=== PATIENT | male | born 1940 | race African-American/Black ===

== ENCOUNTER 2018-04-02 09:10 | Outpatient (CLI) | payer MEDICARE ==
[~2018-04-02] VITALS: Ht 185.4 cm; Wt 93.0 kg
[2018-04-02 10:52] VITALS: BP 127/83
[2018-04-02] MEDS ORDERED: cholesterol med (10:59)
[2018-04-02] MEDS ORDERED: BP med (10:59)
--- NOTE | 2018-04-02 15:20 | GI Initial Consult Note ---
History of Present Illness General Date patient seen: Apr 02, 2018 Time patient seen: 15:17 Referring physician: Armond Reason for Consultation: Colonoscopy Present Illness HPI 77 year old male patient whom presents today for repeat colonoscopy. The patient has history of colonoscopy performed in 2010 noted with 12 polyps. No GI complaints noted today; denies abdominal pain, N/V/D or diarrhea. Denies any unintentional weight loss or changes in dietary habits. No signs of abuse or neglect. Patient is not fall risk. Home Meds Reported Medications [cholesterol med ] No Conflict Check 04/02/18 [BP med ] No Conflict Check 04/02/18 Med list reviewed/reconciled: Yes Allergies: Coded Allergies: No Known Allergies (Unverified , 04/02/18) Patient History History Provided By: Patient, Medical Record PMH Narrative HTN Cholesterol BPH Past Surgical History: TUR-P Rt Knee Pertinent Family History: other - mother had CA Social History: Reports: smoking - 1 pack daily, other - caffeine Review of Systems All Other Systems: negative except mentioned in HPI Physical Exam Vital Signs Date Time Temp Pulse Resp B/P (MAP) Pulse Ox O2 Delivery O2 Flow Rate FiO2 04/02/18 10:52 98.1 81 18 127/83 97 98.1 Sp02 EP Interpretation: reviewed, normal General Appearance: well appearing, no apparent distress, alert Head: normocephalic EENT: PERRL/EOMI, normal ENT inspection Neck: supple Respiratory: normal breath sounds, no respiratory distress Cardiovascular: normal rate Gastrointestinal: normal inspection, non tender, soft, normal bowel sounds, non -distended Rectal: deferred Genitourinary: deferred Musculoskeletal: normal inspection, back normal Neurologic: normal inspection, alert, oriented x3, responsive Psychiatric: normal inspection, judgement/insight normal, memory normal Skin: normal inspection, normal color, no rash, warm/dry, palpation normal, well hydrated Lymphatic: normal inspection, no adenopathy GI: Plan Problems: (1) Colonic polyp (2) Colonoscopy planned Plan Colonoscopy to be scheduled 04/12/18. - CLD & (Nulytely/Suprep/Movi-Prep) prep instructions given and acknowledged by patient. - NPO @ [place] day prior procedure explained. Seen with Dr. Kraft. Thank you for this patient referral. The patient was seen and examined at bedside and all new and available data was reviewed in the patients chart. I agree with the above findings, impression and plan. (Patient seen earlier today. Signature stamp does not reflect patient encounter time.). - MD Nuria HammerB[facility] Center[facility] Apr 02, 2018 15:20
== END 2018-04-02 09:40 | disposition home or self-care (01) ==
LOC: PAN 09:10
DX: Z12.11 Encounter for screening for malignant neoplasm of colon (principal); K63.5 Polyp of colon; I10 Essential (primary) hypertension; E78.5 Hyperlipidemia, unspecified; N40.0 Benign prostatic hyperplasia without lower urinary tract symptoms
CPT/HCPCS: 99201

== ENCOUNTER 2018-04-12 08:32 | Day surgery (SDC) | payer MEDICARE ==
[~2018-04-12] VITALS: Ht 188 cm; Wt 97.5 kg
[2018-04-12] VITALS (8 sets, daily range): BP systolic 103–126; BP diastolic 64–78
--- NOTE | 2018-04-12 06:08 | Anethesia Preoperative Eval ---
Anesthesia Pre-op PMH/ROS General Date of Evaluation: Apr 12, 2018 Time of Evaluation: 06:05 Anesthesiologist: tracey ASA Score: ASA 4 Mallampati Score Class I : Soft palate, uvula, fauces, pillars visible Class II: Soft palate, uvula, fauces visible Class III: Soft palate, base of uvula visible Class IV: Only hard plate visible Mallampati Classification: Class II Surgeon: errol Diagnosis: colon screening Surgical Procedure: colonoscopy Anesthesia History: none Social History: current smoker Family History: no anesthesia problems Allergies: Coded Allergies: No Known Allergies (Unverified , 04/02/18) Medications: see eMAR Past Medical History Cardiovascular: Reports: HTN, other - hypercholesterolemia Gastrointestinal/Genitourinary: Reports: other - colon polyps Musculoskeletal/Integumentary: Reports: OA PSxH Narrative: tur-p, knee arthroscopy Anesthesia Pre-op Phys. Exam Physician Exam Last Vital Signs Date Time Temp Pulse Resp B/P (MAP) Pulse Ox O2 Delivery O2 Flow Rate FiO2 04/12/18 09:08 Room Air 04/12/18 08:57 98.0 78 18 120/72 (88) 96 98.0 Constitutional: NAD Neurologic: CN 2-12 intact Cardiovascular: RRR Respiratory: CTA Gastrointestinal: S/NT/ND Airway Exam Mallampati Score: Class II MO: limited Neck: flexible TMD: 2fb ROM: limited Teeth: intact Anesthesia Pre-op A/P Labs Labs Test 04/12/18 09:20 White Blood Count 9.2 K/UL (4.8-10.8) Red Blood Count 5.49 M/UL (4.70-6.10) Hemoglobin 16.3 G/DL (14.2-18.0) Hematocrit 50.3 % (42.0-52.0) Mean Corpuscular Volume 92 FL (80-99) Mean Corpuscular Hemoglobin 29.8 PG (27.0-31.0) Mean Corpuscular Hemoglobin Concent 32.5 G/DL (32.0-36.0) Red Cell Distribution Width 14.5 % (11.6-14.8) Platelet Count 400 K/UL (150-450) Mean Platelet Volume 5.7 FL (6.5-10.1) Neutrophils (%) (Auto) 61.9 % (45.0-75.0) Lymphocytes (%) (Auto) 24.1 % (20.0-45.0) Monocytes (%) (Auto) 9.2 % (1.0-10.0) Eosinophils (%) (Auto) 3.8 % (0.0-3.0) Basophils (%) (Auto) 1.0 % (0.0-2.0) Sodium Level 140 MMOL/L (136-145) Potassium Level 3.0 MMOL/L (3.5-5.1) Chloride Level 106 MMOL/L (98-107) Carbon Dioxide Level 23 MMOL/L (21-32) Anion Gap 11 mmol/L (5-15) Blood Urea Nitrogen 6 mg/dL (7-18) Creatinine 1.0 MG/DL (0.55-1.30) Estimat Glomerular Filtration Rate mL/min (>60) Glucose Level 115 MG/DL (74-106) Calcium Level 9.2 MG/DL (8.5-10.1) Total Bilirubin 0.4 MG/DL (0.2-1.0) Aspartate Amino Transf (AST/SGOT) 21 U/L (15-37) Alanine Aminotransferase (ALT/SGPT) 24 U/L (12-78) Alkaline Phosphatase 104 U/L (46-116) Total Protein 7.5 G/DL (6.4-8.2) Albumin 3.7 G/DL (3.4-5.0) Globulin 3.8 g/dL Albumin/Globulin Ratio 1.0 (1.0-2.7) Studies Pre-op Studies: EKG - nsr, lad Risk Assessment & Plan Assessment: asa4 Plan: mac Status Change Before Surgery: No Pre-Antibiotics Drug: Lisbet Kline MD Apr 12, 2018 06:08
[~2018-04-12 08:32] MED LIST: Atropine Inj 1mg/10ml Syr IV PRN; BP med; DiphenhydrAMINE 50mg/ml Inj IVP PRN; Midazolam 2mg/2ml Inj IVP PRN; cholesterol med; fentaNYL 100 mcg/2 mL IV PRN
[2018-04-12] MEDS ORDERED: CRESTOR10 M2 ORAL (09:06)
[2018-04-12] MEDS ORDERED: VITAMIN B COMP1 EAC2 ORAL (09:06)
[2018-04-12] MEDS ORDERED: AVAPRO75 MG ORAL (09:06)
[2018-04-12 09:39] LABS: EOSINOPHILS % (AUTO) 3.8 % (0.0-3.0); HEMATOCRIT 50.3 % (42.0-52.0); HEMOGLOBIN 16.3 G/DL (14.2-18.0); LYMPHOCYTES % (AUTO) 24.1 % (20.0-45.0); MEAN CORPUSCULAR VOLUME 92 FL (80-99); MONOCYTES % (AUTO) 9.2 % (1.0-10.0); NEUTROPHILS % (AUTO) 61.9 % (45.0-75.0); PLATELET COUNT 400 K/UL (150-450); RED BLOOD COUNT 5.49 M/UL (4.70-6.10); RED CELL DISTRIBUTION WIDTH 14.5 % (11.6-14.8); WHITE BLOOD COUNT 9.2 K/UL (4.8-10.8)
[2018-04-12 09:42] LABS: ANION GAP 11 mmol/L (5-15); BLOOD UREA NITROGEN 6 mg/dL (7-18); CALCIUM 9.2 MG/DL (8.5-10.1); CARBON DIOXIDE 23 MMOL/L (21-32); CHLORIDE 106 MMOL/L (98-107); SODIUM 140 MMOL/L (136-145)
[2018-04-12 09:46] LABS: ALANINE AMINOTRANSFERASE 24 U/L (12-78); ALBUMIN 3.7 G/DL (3.4-5.0); ALKALINE PHOSPHATASE 104 U/L (46-116); ASPARTATE AMINO TRANSFERASE 21 U/L (15-37); BILIRUBIN,TOTAL 0.4 MG/DL (0.2-1.0)
[2018-04-12] MEDS ORDERED: Propofol 200mg/20ml IV ONE (10:00)
[2018-04-12] MEDS ORDERED: Lidocaine 1% MPF 10mg/ml 5ml ONE (10:00)
[2018-04-12] MEDS ORDERED: Atropine Sulfate 0.4mg/ml inj ONE (10:00)
--- NOTE | 2018-04-12 10:20 | Pre-Procedure Note/Attestation ---
Pre-Procedure Note/Attestation Complete Prior to Procedure Planned Procedure: not applicable Procedure Narrative: esophagogastroduodenoscopy and colonoscopy Indications for Procedure Pre-Operative Diagnosis: screening colon, GERD Attestation I attest that I discussed the nature of the procedure; its benefits; risks and complications; and alternatives (and the risks and benefits of such alternatives ), prior to the procedure, with the patient (or the patient's legal sales account representative). I attest that, if there was a reasonable possibility of needing a blood transfusion, the patient (or the patient's legal sales account representative) was given the [facility] standardized written summary, pursuant to the [place] Blood Safety Act ([place] Health and Safety Code # 1645, as amended). I attest that I re-evaluated the patient just prior to the surgery and that there has been no change in the patient's H&P, except as documented below: Severiano Kraft MD Apr 12, 2018 10:20
--- NOTE | 2018-04-12 10:21 | Short Stay Surgery H&P ---
History of Present Illness History of Present Illness Chief Complaint see recent office notes HPI Jeremiah Raymundo Jr is a 77 year old male who was admitted on for Colon Screening Patient History Allergies: Coded Allergies: No Known Allergies (Unverified , 04/02/18) Medication History Scheduled Irbesartan* (Avapro*), Unknown Dose ORAL DAILY, (Reported) Rosuvastatin Calcium* (Crestor*), Unknown Dose ORAL DAILY, (Reported) Vitamin B Complex (Vitamin B Complex), 1 CAP ORAL DAILY, (Reported) Physical Exam Vital Signs Last Vital Signs Date Time Temp Pulse Resp B/P (MAP) Pulse Ox O2 Delivery O2 Flow Rate FiO2 04/12/18 09:08 Room Air 04/12/18 08:57 98.0 78 18 120/72 (88) 96 98.0 Labs Laboratory Tests Test 04/12/18 09:20 White Blood Count 9.2 K/UL (4.8-10.8) Red Blood Count 5.49 M/UL (4.70-6.10) Hemoglobin 16.3 G/DL (14.2-18.0) Hematocrit 50.3 % (42.0-52.0) Mean Corpuscular Volume 92 FL (80-99) Mean Corpuscular Hemoglobin 29.8 PG (27.0-31.0) Mean Corpuscular Hemoglobin Concent 32.5 G/DL (32.0-36.0) Red Cell Distribution Width 14.5 % (11.6-14.8) Platelet Count 400 K/UL (150-450) Mean Platelet Volume 5.7 FL (6.5-10.1) L Neutrophils (%) (Auto) 61.9 % (45.0-75.0) Lymphocytes (%) (Auto) 24.1 % (20.0-45.0) Monocytes (%) (Auto) 9.2 % (1.0-10.0) Eosinophils (%) (Auto) 3.8 % (0.0-3.0) H Basophils (%) (Auto) 1.0 % (0.0-2.0) Sodium Level 140 MMOL/L (136-145) Potassium Level 3.0 MMOL/L (3.5-5.1) L Chloride Level 106 MMOL/L (98-107) Carbon Dioxide Level 23 MMOL/L (21-32) Anion Gap 11 mmol/L (5-15) Blood Urea Nitrogen 6 mg/dL (7-18) L Creatinine 1.0 MG/DL (0.55-1.30) Estimat Glomerular Filtration Rate mL/min (>60) Glucose Level 115 MG/DL (74-106) H Calcium Level 9.2 MG/DL (8.5-10.1) Total Bilirubin 0.4 MG/DL (0.2-1.0) Aspartate Amino Transf (AST/SGOT) 21 U/L (15-37) Alanine Aminotransferase (ALT/SGPT) 24 U/L (12-78) Alkaline Phosphatase 104 U/L (46-116) Total Protein 7.5 G/DL (6.4-8.2) Albumin 3.7 G/DL (3.4-5.0) Globulin 3.8 g/dL Albumin/Globulin Ratio 1.0 (1.0-2.7) Carcinoembryonic Antigen Pending Plan Attestation Are the patient's medical conditions optimized for surgery? Severiano Kraft MD Apr 12, 2018 10:21
--- NOTE | 2018-04-12 11:24 | Endoscopy Procedure Note ---
Endoscopy Procedure Note General Indication for Procedure: colon polyps Procedures Performed: colonoscopy Operative Findings/Diagnosis: 9 polyps Specimen: yes Pt Tolerated Procedure Well: Yes Estimated Blood Loss: none Anesthesia Anesthesiologist: hallie Anesthesia: MAC Inserted Devices Implant(s) used?: No Quality Quality of Bowel Preparation: Good Did scope reach the cecum?: Yes Was there any complications?: No GI Core Measures 50 yrs or older w/o bx or poly: No 10yrs. F/U not recommended: Yes If not recommended, why?: Above average risk 10 yrs. F/U needed: Yes 18 years or older w/prev. colo: Yes <3yrs. since last colonoscopy: No Severiano Kraft MD Apr 12, 2018 11:24
--- NOTE | 2018-04-12 11:43 | Immediate Post-Op Evaluation ---
Immediate Post-Op Evalulation Immediate Post-Op Evalulation Procedure: colonoscopy w/bx Date of Evaluation: Apr 12, 2018 Time of Evaluation: 11:39 IV Fluids: 700ml 0.9ns Blood Products: none Estimated Blood Loss: negligible Blood Pressure Systolic: 118 Blood Pressure Diastolic: 69 Pulse Rate: 69 Respiratory Rate: 18 O2 Sat by Pulse Oximetry: 99 Temperature (Fahrenheit): 97.1 Pain Score (1-10): 0 Nausea: No Vomiting: No Complications none Patient Status: awake, reacts, patent Hydration Status: adequate Drug: Lisbet Kline MD Apr 12, 2018 11:43
--- NOTE | 2018-04-12 11:44 | 48 Hour Post Anesthesia Eval ---
Post Anesthesia Evaluation Procedure: colonoscopy w/bx Date of Evaluation: Apr 12, 2018 Time of Evaluation: 11:43 Blood Pressure Systolic: 110 0: 66 Pulse Rate: 69 Respiratory Rate: 18 Temperature (Fahrenheit): 97.1 O2 Sat by Pulse Oximetry: 99 Airway: patent Nausea: No Vomiting: No Pain Intensity: 0 Hydration Status: adequate Cardiopulmonary Status: stable Mental Status/LOC: patient returned to baseline Post-Anesthesia Complications: none Follow-up care needed: N/A Lisbet Roth MD Apr 12, 2018 11:44
--- NOTE | 2018-04-12 22:00 | Procedure Note ---
DATE OF PROCEDURE: 04/12/2018 SURGEON: Severiano Kraft M.D. ANESTHESIOLOGIST: Dr. Ruiz. PROCEDURE: Colonoscopy with biopsy and snare polypectomy. INSTRUMENT: Olympus adult flexible colonoscope. INDICATION: History of colonic polyps, 10 of them actually. The procedure, risks, benefits, and possible consequences, including hemorrhage, aspiration, perforation and infection, and alternative treatments, were explained to the patient/legal guardian by Dr. Severiano Kraft and the patient/legal guardian understood and accepted these risks. DESCRIPTION OF PROCEDURE: After informed consent was obtained and the patient was adequately sedated, first rectal exam was performed, which was positive for internal hemorrhoids. Then, the scope was advanced from the rectum into cecum documented by appendiceal orifice, ileocecal valve, and right upper quadrant palpation. Quality of prep was good. The patient has a very large sessile polyp right at the opening of ileocecal valve. This polyp was removed with a piecemeal fashion using a snare at least four times and then the rest of it was removed with the Vincent net. The patient has also other polyps. He had one in ascending colon, removed with the cold biopsy forceps technique. He had three in transverse colon, two of them were small and removed with cold biopsy and one of them was larger. He had three in the descending colon. One of them was removed with snare with the cold biopsy forceps technique. The patient also had evidence of diverticulosis scattered throughout the colon. Retroflexion of rectum showed evidence of internal hemorrhoids. SUMMARY OF FINDINGS: 1. Multiple colonic polyps. 2. Polyps and piecemeal fashion removal of the ileocecal valve polyp. I want to thank, Dr. Percy Leahy, for this kind referral. Severiano Kraft M.D. DR: STEVE JOB#: [id number] CC: Percy Leahy M.D.; Fax#: [phone]
== END 2018-04-12 13:05 | disposition home or self-care (01) ==
LOC: GAS 08:32
DX: Z12.11 Encounter for screening for malignant neoplasm of colon (principal); Z86.010 Personal history of colon polyps; D12.2 Benign neoplasm of ascending colon; D12.4 Benign neoplasm of descending colon; D12.0 Benign neoplasm of cecum; D12.3 Benign neoplasm of transverse colon; K63.5 Polyp of colon; I10 Essential (primary) hypertension; E78.00 Pure hypercholesterolemia, unspecified; N40.0 Benign prostatic hyperplasia without lower urinary tract symptoms; F17.200 Nicotine dependence, unspecified, uncomplicated; M19.90 Unspecified osteoarthritis, unspecified site
CPT/HCPCS: 36415; 45380; 45385; 80053; 82378; 85025; 93005; J0461; J2704; 94003; 94150

== ENCOUNTER 2018-04-14 15:01 | Inpatient (IN) | payer MEDICARE ==
[~2018-04-14] VITALS: Ht 188 cm; Wt 97.2 kg
[~2018-04-14 15:01] MED LIST changes: +AVAPRO75 MG ORAL; -Atropine Inj 1mg/10ml Syr IV PRN; +CRESTOR10 M2 ORAL; -DiphenhydrAMINE 50mg/ml Inj IVP PRN; -Midazolam 2mg/2ml Inj IVP PRN; +VITAMIN B COMP1 EAC2 ORAL; -fentaNYL 100 mcg/2 mL IV PRN
[2018-04-14 15:16] VITALS: BP 79/44
[2018-04-14] MEDS ORDERED: Pantoprazole Inj IV ONE (15:30)
[2018-04-14] MEDS ORDERED: Isovue-300 100ml vial INJ PRN (15:30)
--- NOTE | 2018-04-14 15:37 | Emergency Room Report ---
History of Present Illness General Chief Complaint: Gastrointestinal Bleed Source: Patient Present Illness HPI Patient presents with the passing blood clots in his as stool. This began at 1 AM. He had a colonoscopy 3 days ago. He was doing okay. He denies any abdominal pain. He feels extremely weak at this time. He's passed more than 2 cups in less than a gallon of blood. The blood seems to be slowing down with his last stool. There is no vomiting. Denies any chest pain or dyspnea. Dizziness with standing. No chest pain. Some DURON. No fevers or chills. Denies dysuria or joint pain. No cough or sore throat. The patient is a history of urinary retention. He's on medication. The patient is also smoker denies alcohol or drugs. Allergies: Coded Allergies: No Known Allergies (Unverified , 04/02/18) Patient History Past Medical History: see triage record Social History: Reports: smoking; Denies: alcohol use, drug use Social History Narrative runs [facility] Reviewed Nursing Documentation: PMH: Agreed; PSxH: Agreed Nursing Documentation-PMH Hx Cardiac Problems: Yes Hx Hypertension: Yes Hx Cancer: No Hx Gastrointestinal Problems: No Hx Neurological Problems: No Review of Systems All Other Systems: negative except mentioned in HPI Physical Exam Vital Signs Date Time Temp Pulse Resp B/P (MAP) Pulse Ox O2 Delivery O2 Flow Rate FiO2 04/14/18 15:16 97.5 99 20 79/44 98 Room Air 97.5 Sp02 EP Interpretation: reviewed, normal General Appearance: well appearing, no apparent distress, GCS 15 Head: normocephalic Eyes: bilateral eye normal inspection, bilateral eye PERRL ENT: moist mucus membranes Neck: supple Respiratory: lungs clear, normal breath sounds Cardiovascular #1: regular rate, rhythm Cardiovascular #2: 2+ radial (R) Gastrointestinal: normal inspection, normal bowel sounds, non tender, no mass, non-distended Rectal: heme positive stool Musculoskeletal: back normal, gait/station normal, normal range of motion Neurologic: alert, oriented x3, grossly normal Psychiatric: mood/affect normal Skin: normal inspection, warm/dry Procedures Critical Care Time Critical Care Time Total Critical Care Time: 60 min bedside evaluation and treatment excludes procedures (EKG). Reason for critical care: hemorrhagic shock, repeated evaluations, blood transfusions, consultations, K+ replacement Possible complications: hypotension, hypertension, AR, shock, arrhythmias, metabolic acidosis, end organ damage, respiratory failure. Interventions: Fluid resuscitation, blood transfusions, GI consultation, repeated evaluations Course: Patient with lower GI bleed and hypotension. Immediate fluid resuscitation and request for blood. Informed consent for transfusions. Discussion with blood bank. Improved with fluids and blood. Less bleeding. Tolerated blood. Discussion with surgical services asst who saw patient in ED. Discussed with GI market intelligence consultant. K+ critically low and replacement ordered. Tolerated infusions. Repeated assessments. Still with bleeding. VS improved. Consultations: nursing staff, EMS, family, blood bank, GI market intelligence consultant, surgical services asst Performed by: Dr. Jeronimo Tolerated well condition = serious Medical Decision Making Diagnostic Impression: Primary Impression: Hemorrhagic shock Additional Impressions: Lower GI bleed Hypokalemia ER Course Patient presents with passing blood clots per rectum and hypotension. Differential includes postprocedure bleed, diverticulosis and other possible lesions. The patient is in hemorrhagic shock at this time and needs to have fluid resuscitation as well as a blood. If the bleeding resumes we should consider TXA. Acid. Evaluation will also be with EKG, chest x-ray and CT of the abdomen with IV contrast. EKG with sinus rhythm rate of 97 no strain. H/H low, still felt to be higher due to hemoconcentration - blood still requested. CXR unremarkable. The blood bank has been notified that we will need blood as soon as possible for him. K+ low. K ordered IV. BP better and blood being transfused. Repeat H/H prior to transfusion. H/H dropped 2 points before transfusion. Improved. Seen by Dr. Burton. Discussed with Dr. Kraft. CT - see report. No free air. Still passing blood per rectum after transfusions. VS stable. Admit telemetry, Dr. Leahy. Laboratory Tests Test 04/14/18 15:25 04/14/18 17:18 White Blood Count 10.9 K/UL (4.8-10.8) H 11.7 K/UL (4.8-10.8) H Red Blood Count 3.44 M/UL (4.70-6.10) L 2.85 M/UL (4.70-6.10) L Hemoglobin 11.1 G/DL (14.2-18.0) L 9.3 G/DL (14.2-18.0) L Hematocrit 32.8 % (42.0-52.0) L 27.6 % (42.0-52.0) L Mean Corpuscular Volume 95 FL (80-99) 97 FL (80-99) Mean Corpuscular Hemoglobin 32.3 PG (27.0-31.0) H 32.5 PG (27.0-31.0) H Mean Corpuscular Hemoglobin Concent 33.9 G/DL (32.0-36.0) 33.7 G/DL (32.0-36.0) Red Cell Distribution Width 14.6 % (11.6-14.8) 14.8 % (11.6-14.8) Platelet Count 315 K/UL (150-450) 250 K/UL (150-450) Mean Platelet Volume 5.9 FL (6.5-10.1) L 5.7 FL (6.5-10.1) L Neutrophils (%) (Auto) 59.8 % (45.0-75.0) 70.9 % (45.0-75.0) Lymphocytes (%) (Auto) 31.8 % (20.0-45.0) 20.2 % (20.0-45.0) Monocytes (%) (Auto) 6.2 % (1.0-10.0) 7.2 % (1.0-10.0) Eosinophils (%) (Auto) 1.5 % (0.0-3.0) 1.0 % (0.0-3.0) Basophils (%) (Auto) 0.7 % (0.0-2.0) 0.7 % (0.0-2.0) Prothrombin Time 10.9 SEC (9.30-11.50) Prothrombin Time INR 1.0 (0.9-1.1) PTT 28 SEC (23-33) Sodium Level 142 MMOL/L (136-145) Potassium Level 2.9 MMOL/L (3.5-5.1) L Chloride Level 107 MMOL/L (98-107) Carbon Dioxide Level 26 MMOL/L (21-32) Anion Gap 9 mmol/L (5-15) Blood Urea Nitrogen 15 mg/dL (7-18) Creatinine 1.2 MG/DL (0.55-1.30) Estimate Glomerular Filtration Rate mL/min (>60) Glucose Level 179 MG/DL (74-106) H Calcium Level 8.3 MG/DL (8.5-10.1) L Total Bilirubin 0.6 MG/DL (0.2-1.0) Aspartate Amino Transferase (AST) 11 U/L (15-37) L Alanine Aminotransferase (ALT) 17 U/L (12-78) Alkaline Phosphatase 75 U/L (46-116) Total Creatine Kinase 64 U/L (26-308) Troponin I 0.000 ng/mL (0.000-0.056) Total Protein 5.9 G/DL (6.4-8.2) L Albumin 2.9 G/DL (3.4-5.0) L Globulin 3.0 g/dL Albumin/Globulin Ratio 1.0 (1.0-2.7) Lipase 218 U/L (73-393) EKG Diagnostic Results Rate: normal Rhythm: NSR ST Segments: no acute changes Rhythm Strip Diag. Results EP Interpretation: yes Rhythm: NSR, no PVC's, no ectopy Chest X-Ray Diagnostic Results Chest X-Ray Diagnostic Results : Chest X-Ray Ordered: Yes # of Views/Limited/Complete: 1 View Indication: Other EP Interpretation: Yes Interpretation: no consolidation, no effusion, no pneumothorax Impression: No acute disease Electronically Signed by: Electronically signed by Nawaf Jeronimo MD CT/MRI/US Diagnostic Results CT/MRI/US Diagnostic Results : Imaging Test Ordered: abd pelvis Impression clips, cysts, no free air Last Vital Signs Date Time Temp Pulse Resp B/P (MAP) Pulse Ox O2 Delivery O2 Flow Rate FiO2 04/15/18 00:00 99.9 88 20 109/71 (84) 100 99.9 04/14/18 22:16 Room Air Status: improved Disposition: ADMITTED INPATIENT Condition: Serious Nawaf Jeronimo M.D. Apr 14, 2018 15:37
[2018-04-14 15:44] LABS: BASOPHILS % (AUTO) 0.7 % (0.0-2.0); EOSINOPHILS % (AUTO) 1.5 % (0.0-3.0); HEMATOCRIT 32.8 % (42.0-52.0); HEMOGLOBIN 11.1 G/DL (14.2-18.0); LYMPHOCYTES % (AUTO) 31.8 % (20.0-45.0); MEAN CORPUSCULAR VOLUME 95 FL (80-99); MONOCYTES % (AUTO) 6.2 % (1.0-10.0); NEUTROPHILS % (AUTO) 59.8 % (45.0-75.0); PLATELET COUNT 315 K/UL (150-450); RED BLOOD COUNT 3.44 M/UL (4.70-6.10); RED CELL DISTRIBUTION WIDTH 14.6 % (11.6-14.8); WHITE BLOOD COUNT 10.9 K/UL (4.8-10.8)
[2018-04-14 15:57] LABS: ANION GAP 9 mmol/L (5-15); BLOOD UREA NITROGEN 15 mg/dL (7-18); CALCIUM 8.3 MG/DL (8.5-10.1); CARBON DIOXIDE 26 MMOL/L (21-32); CHLORIDE 107 MMOL/L (98-107); CREATININE 1.2 MG/DL (0.55-1.30); POTASSIUM 2.9 MMOL/L (3.5-5.1); SODIUM 142 MMOL/L (136-145)
[2018-04-14 16:02] LABS: ALANINE AMINOTRANSFERASE 17 U/L (12-78); ALBUMIN 2.9 G/DL (3.4-5.0); ALKALINE PHOSPHATASE 75 U/L (46-116); ASPARTATE AMINO TRANSFERASE 11 U/L (15-37); BILIRUBIN,TOTAL 0.6 MG/DL (0.2-1.0); CREATINE KINASE 64 U/L (26-308)
[2018-04-14 17:40] VITALS: BP 97/47
[2018-04-14 17:46] LABS: BASOPHILS % (AUTO) 0.7 % (0.0-2.0); HEMATOCRIT 27.6 % (42.0-52.0); HEMOGLOBIN 9.3 G/DL (14.2-18.0); LYMPHOCYTES % (AUTO) 20.2 % (20.0-45.0); MEAN CORPUSCULAR VOLUME 97 FL (80-99); MONOCYTES % (AUTO) 7.2 % (1.0-10.0); NEUTROPHILS % (AUTO) 70.9 % (45.0-75.0); PLATELET COUNT 250 K/UL (150-450); RED BLOOD COUNT 2.85 M/UL (4.70-6.10); RED CELL DISTRIBUTION WIDTH 14.8 % (11.6-14.8); WHITE BLOOD COUNT 11.7 K/UL (4.8-10.8)
[2018-04-14 17:55] VITALS: BP 109/58
[2018-04-14 19:15] VITALS: BP 100/59
--- NOTE | 2018-04-14 19:25 | Consultation ---
History of Present Illness General Date patient seen: Apr 14, 2018 Chief Complaint: Gastrointestinal Bleed Reason for Consultation: GI Bleed Present Illness HPI 77 year old pleasant male presented to ED with complaints of GI bleed. States he had a colonoscopy this past Sunday where polyps were biopsied. Did well after procedure and went home. Was well at home without complaints. Had one or two watery non bloody BM's on Sunday. Woke up at 1AM Sunday morning with urge to use the bathroom and noted large bloody BM with multiple large blood clots. Came to ED for evaluation. Denies n/v/f/c. States he was tolerating diet well. [place] weak and fatigued after bloody BM. In ED noted to be anemic and transfused PRBC. surgery called to evaluate. patient seen in ED, chart reviewed, patient examined. Allergies: Coded Allergies: No Known Allergies (Unverified , 04/02/18) Medication History Scheduled Irbesartan* (Avapro*), Unknown Dose ORAL DAILY, (Reported) Rosuvastatin Calcium* (Crestor*), Unknown Dose ORAL DAILY, (Reported) Vitamin B Complex (Vitamin B Complex), 1 CAP ORAL DAILY, (Reported) Patient History History Provided By: Patient, Medical Record, PMD Healthcare decision maker Resuscitation status Advanced Directive on File Past Medical/Surgical History Past Medical/Surgical History: (1) Colonic polyp (2) Colonoscopy planned (3) Hemorrhagic shock (4) Hypokalemia (5) Lower GI bleed Review of Systems All Other Systems: negative except mentioned in HPI Physical Exam General Appearance: WD/WN, no apparent distress, alert Lines, tubes and drains: peripheral HEENT: normocephalic, mucous membranes moist Neck: normal inspection Respiratory/Chest: lungs clear, normal breath sounds, no respiratory distress, no accessory muscle use Cardiovascular/Chest: normal peripheral pulses, regular rhythm Abdomen: normal bowel sounds, non tender, soft, no organomegaly, no mass Genitourinary/Rectal: heme positive stool Extremities: normal range of motion, non-tender, normal inspection Skin Exam: warm/dry Neurologic: alert, oriented x 3 Last 24 Hour Vital Signs Date Time Temp Pulse Resp B/P (MAP) Pulse Ox O2 Delivery O2 Flow Rate FiO2 04/14/18 17:55 97.0 77 21 109/58 100 Room Air 97.0 04/14/18 17:40 97.1 78 18 97/47 100 Room Air 97.1 04/14/18 15:16 97.5 99 20 79/44 98 Room Air 97.5 04/14/18 15:16 97.5 99 20 79/44 98 Room Air 97.5 Laboratory Tests Test 04/14/18 15:25 04/14/18 17:18 White Blood Count 10.9 K/UL (4.8-10.8) H 11.7 K/UL (4.8-10.8) H Red Blood Count 3.44 M/UL (4.70-6.10) L 2.85 M/UL (4.70-6.10) L Hemoglobin 11.1 G/DL (14.2-18.0) L 9.3 G/DL (14.2-18.0) L Hematocrit 32.8 % (42.0-52.0) L 27.6 % (42.0-52.0) L Mean Corpuscular Volume 95 FL (80-99) 97 FL (80-99) Mean Corpuscular Hemoglobin 32.3 PG (27.0-31.0) H 32.5 PG (27.0-31.0) H Mean Corpuscular Hemoglobin Concent 33.9 G/DL (32.0-36.0) 33.7 G/DL (32.0-36.0) Red Cell Distribution Width 14.6 % (11.6-14.8) 14.8 % (11.6-14.8) Platelet Count 315 K/UL (150-450) 250 K/UL (150-450) Mean Platelet Volume 5.9 FL (6.5-10.1) L 5.7 FL (6.5-10.1) L Neutrophils (%) (Auto) 59.8 % (45.0-75.0) 70.9 % (45.0-75.0) Lymphocytes (%) (Auto) 31.8 % (20.0-45.0) 20.2 % (20.0-45.0) Monocytes (%) (Auto) 6.2 % (1.0-10.0) 7.2 % (1.0-10.0) Eosinophils (%) (Auto) 1.5 % (0.0-3.0) 1.0 % (0.0-3.0) Basophils (%) (Auto) 0.7 % (0.0-2.0) 0.7 % (0.0-2.0) Prothrombin Time 10.9 SEC (9.30-11.50) Prothromb Time International Ratio 1.0 (0.9-1.1) Activated Partial Thromboplast Time 28 SEC (23-33) Sodium Level 142 MMOL/L (136-145) Potassium Level 2.9 MMOL/L (3.5-5.1) L Chloride Level 107 MMOL/L (98-107) Carbon Dioxide Level 26 MMOL/L (21-32) Anion Gap 9 mmol/L (5-15) Blood Urea Nitrogen 15 mg/dL (7-18) Creatinine 1.2 MG/DL (0.55-1.30) Estimat Glomerular Filtration Rate mL/min (>60) Glucose Level 179 MG/DL (74-106) H Calcium Level 8.3 MG/DL (8.5-10.1) L Total Bilirubin 0.6 MG/DL (0.2-1.0) Aspartate Amino Transf (AST/SGOT) 11 U/L (15-37) L Alanine Aminotransferase (ALT/SGPT) 17 U/L (12-78) Alkaline Phosphatase 75 U/L (46-116) Total Creatine Kinase 64 U/L (26-308) Troponin I 0.000 ng/mL (0.000-0.056) Total Protein 5.9 G/DL (6.4-8.2) L Albumin 2.9 G/DL (3.4-5.0) L Globulin 3.0 g/dL Albumin/Globulin Ratio 1.0 (1.0-2.7) Lipase 218 U/L (73-393) Height (Feet): 6 Height (Inches): 2.00 Weight (Pounds): 210 Medications Current Medications Medications (Trade) Dose Ordered Sig/Kendal Route PRN Reason Start Time Stop Time Status Last Admin Dose Admin Iopamidol (Isovue-300 100ml) 100 ml NOW PRN INJ Radiology Procedure 04/14/18 15:30 Potassium Chloride 100 ml @ 100 mls/hr Q1HR IVPB 04/14/18 17:00 04/14/18 19:59 04/14/18 19:11 Sodium Chloride 1,000 ml @ 300 mls/hr Q3H20M IV 04/14/18 15:30 05/14/18 15:29 04/14/18 19:15 Assessment/Plan Problem List: (1) Lower GI bleed Assessment & Plan: Acute lower GI bleed 1-2 days after colonoscopy with polypectomy. Anemia s/p PRBC transfusion. Likely bleeding from polypectomy site which is common and has hopefully stopped by now. Likely just oozing and not active arterial bleeding. Discussed with PCP and GI -Admit -Trend H/H -Transfuse PRN -NPO p MN for possible repeat colonoscopy tomorrow -no acute surgical intervention necessary at this time. will be available in case ongoing hemorrhage thank you for allowing me to participate in Mr. Raymundo's care. will follow with recs ICD Codes: K92.2 - Gastrointestinal hemorrhage, unspecified SNOMED: [id number] Status: stable David Burton Apr 14, 2018 19:25
[2018-04-14] MEDS ORDERED: Mylanta II UD 30ml ORAL PRN (19:30)
[2018-04-14] MEDS ORDERED: Morphine Sulfate 2mg/ml Inj IVP PRN (19:30)
[2018-04-14] MEDS ORDERED: Nulytely 4L ORAL SCH (20:00)
[2018-04-14 20:45] VITALS: BP 101/62
[2018-04-14 21:20] VITALS: BP 119/74
[2018-04-14] MEDS ORDERED: Polyethylene Glycol 238gm bottle ORAL SCH (21:45)
[2018-04-15] VITALS (11 sets, daily range): BP systolic 94–135; BP diastolic 49–84
--- NOTE | 2018-04-15 00:15 | History and Physical Report ---
DATE OF ADMISSION: 04/14/2018 HISTORY OF PRESENT ILLNESS: The patient is a very pleasant 77-year-old male with history of hypertension, hyperlipidemia, and history of colon polyps, who had a colonoscopy done by Dr. Kraft on Sunday. After procedure, he went home and started having watery, nonbloody bowel movements on Sunday. He woke up Sunday morning at about 1 a.m., and noted to have a large bloody bowel movement with multiple blood clots. It continued and that is why he presented to the emergency room. He admitted to feeling some weakness in the ER and was noted to be hypotensive, tachycardic, and dizzy. The patient was fatigued. Denies any chest pain. No shortness of breath and he was transfused in the emergency room. PAST MEDICAL HISTORY: Includes history of hypertension, history of hyperlipidemia, and history of colonic polyps. MEDICATIONS: Please see his reconciled medication list. ALLERGIES: None known. SOCIAL HISTORY: He does not drink any alcohol. He does smoke. He does not use any drugs. FAMILY HISTORY: Noncontributory. REVIEW OF SYSTEMS: No headaches. No sore throat. No chest pain. No shortness of breath. He denies any abdominal pain. No urinary symptoms. Appetite is good in general. PHYSICAL EXAMINATION: GENERAL: He is well developed and well nourished, currently in no apparent distress, seen in the ER. VITAL SIGNS: His blood pressure initially was 79/44, pulse 99, temperature 97.5, and pulse oximetry 98%. He was given IV fluids and started on transfusion. His blood pressure increased to 109/58, pulse 77, and respirations 21. HEENT: Head is normocephalic and atraumatic. Pupils are equally reactive to light. Extraocular muscles intact. Eyes are anicteric. NECK: Supple. No JVP. No bruits. LUNGS: Clear. HEART: Regular rate and rhythm. ABDOMEN: Soft. Positive bowel sounds. Nondistended. Nontender. EXTREMITIES: No clubbing, cyanosis, or edema. positive. NEUROLOGIC: Nonfocal. PSYCHIATRY: Normal mood and affect. LABORATORY AND DIAGNOSTIC DATA: White count 10.9, initial hemoglobin was 11.1, hematocrit 32.8, and platelet count 315,000. Followup hemoglobin during transfusion was 9.3 and hematocrit 27.6. The patient had been given IV fluids too. His sodium is 142, potassium is 3.9, BUN of 15, creatinine 1.3, glucose 179, calcium 8.3. Troponin 0.00. EKG noted. ASSESSMENT AND PLAN: The patient is a 77-year-old male with history of hypertension, hyperlipidemia, and history of colonic polyps, who underwent colonoscopy on Sunday and presented to the emergency room with bright red blood per rectum with blood clots. He was initially hypotensive and somewhat tachycardic, feeling weak and dizzy. The patient was given IV fluids. He was also getting a transfusion of 2 units. GI consultation was requested with Dr. Kraft. The patient likely will need to have followup colonoscopy. I have also consulted Surgery in case he continues to bleed. His potassium will resolve with supplements and check a magnesium level. The sugar was also high. We will monitor Accu-Cheks and check a glycohemoglobin in the morning. Also, check his , lipid panel, and follow up CBC. The patient should be on DVT and ulcer prophylaxis. Percy Leahy M.D. : AJIT JOB#: [id number] CC: MAC
[2018-04-15] MEDS ORDERED: UNOBMED (06:18)
[2018-04-15 06:44] LABS: BASOPHILS % (AUTO) 1.1 % (0.0-2.0); EOSINOPHILS % (AUTO) 2.9 % (0.0-3.0); HEMATOCRIT 26.7 % (42.0-52.0); HEMOGLOBIN 9.2 G/DL (14.2-18.0); LYMPHOCYTES % (AUTO) 22.7 % (20.0-45.0); MEAN CORPUSCULAR VOLUME 92 FL (80-99); MONOCYTES % (AUTO) 7.4 % (1.0-10.0); NEUTROPHILS % (AUTO) 66.1 % (45.0-75.0); PLATELET COUNT 240 K/UL (150-450); RED BLOOD COUNT 2.91 M/UL (4.70-6.10); RED CELL DISTRIBUTION WIDTH 14.3 % (11.6-14.8); WHITE BLOOD COUNT 9.5 K/UL (4.8-10.8)
[2018-04-15 06:48] LABS: INR 1.1 (0.9-1.1)
[2018-04-15 07:05] LABS: ANION GAP 9 mmol/L (5-15); BLOOD UREA NITROGEN 12 mg/dL (7-18); CALCIUM 7.4 MG/DL (8.5-10.1); CARBON DIOXIDE 24 MMOL/L (21-32); CHLORIDE 113 MMOL/L (98-107); CREATININE 0.8 MG/DL (0.55-1.30); POTASSIUM 3.4 MMOL/L (3.5-5.1); SODIUM 146 MMOL/L (136-145)
--- NOTE | 2018-04-15 09:00 | Diagnostic Imaging Report ---
Indication: Chest pain Technique: One view of the chest Comparison: 03/27/2011 Findings: Lungs and pleural spaces are clear. The heart is enlarged. The aorta is tortuous and ectatic. Upper mediastinum is unremarkable. Findings are unchanged Impression: Cardiomegaly. No acute process
[2018-04-15] MEDS ORDERED: Propofol 200mg/20ml IV ONE (12:00)
[2018-04-15] MEDS ORDERED: ePHEDrine 50mg/ml Inj ONE (12:00)
--- NOTE | 2018-04-15 12:01 | General Surgery Progress Note ---
General Surgery-Progress Note Subjective Symptoms: improved, pain absent, passing flatus, BM Additional Comments feels better. labs okay. no significant bloody bms now Objective Last 24 Hour Vital Signs Date Time Temp Pulse Resp B/P (MAP) Pulse Ox O2 Delivery O2 Flow Rate FiO2 04/15/18 08:00 82 04/15/18 08:00 99.7 76 18 135/74 (94) 100 99.7 04/15/18 04:00 78 04/15/18 04:00 99.7 83 20 116/71 (86) 99 99.7 04/15/18 00:00 99.9 88 20 109/71 (84) 100 99.9 04/15/18 00:00 91 04/14/18 22:16 Room Air 04/14/18 21:20 97.9 82 18 119/74 (89) 100 97.9 04/14/18 21:11 77 04/14/18 20:50 98.0 78 18 101/62 100 Room Air 98.0 04/14/18 20:45 78 18 101/62 100 Room Air 04/14/18 19:15 98.0 76 21 100/59 100 Room Air 98.0 04/14/18 17:55 97.0 77 21 109/58 100 Room Air 97.0 04/14/18 17:40 97.1 78 18 97/47 100 Room Air 97.1 04/14/18 15:16 97.5 99 20 79/44 98 Room Air 97.5 04/14/18 15:16 97.5 99 20 79/44 98 Room Air 97.5 I&O Intake and Output 04/14/18 04/15/18 19:00 07:00 Intake Total 1386 ml Output Total 0 ml 100 ml Balance 0 ml 1286 ml Intake Oral 480 ml IV Total 906 ml Output Urine Total 0 ml Stool Total 100 ml # Voids 2 # Bowel Movements 1 Drains: none Cardiovascular: RSR Respiratory: clear Abdomen: soft, flat, non-tender, present bowel sounds Extremities: no edema, no tenderness, no cyanosis, other Laboratory Tests Test 04/14/18 15:25 04/14/18 17:18 04/15/18 05:50 White Blood Count 10.9 K/UL (4.8-10.8) H 11.7 K/UL (4.8-10.8) H 9.5 K/UL (4.8-10.8) Red Blood Count 3.44 M/UL (4.70-6.10) L 2.85 M/UL (4.70-6.10) L 2.91 M/UL (4.70-6.10) L Hemoglobin 11.1 G/DL (14.2-18.0) L 9.3 G/DL (14.2-18.0) L 9.2 G/DL (14.2-18.0) L Hematocrit 32.8 % (42.0-52.0) L 27.6 % (42.0-52.0) L 26.7 % (42.0-52.0) L Mean Corpuscular Volume 95 FL (80-99) 97 FL (80-99) 92 FL (80-99) Mean Corpuscular Hemoglobin 32.3 PG (27.0-31.0) H 32.5 PG (27.0-31.0) H 31.6 PG (27.0-31.0) H Mean Corpuscular Hemoglobin Concent 33.9 G/DL (32.0-36.0) 33.7 G/DL (32.0-36.0) 34.5 G/DL (32.0-36.0) Red Cell Distribution Width 14.6 % (11.6-14.8) 14.8 % (11.6-14.8) 14.3 % (11.6-14.8) Platelet Count 315 K/UL (150-450) 250 K/UL (150-450) 240 K/UL (150-450) Mean Platelet Volume 5.9 FL (6.5-10.1) L 5.7 FL (6.5-10.1) L 6.2 FL (6.5-10.1) L Neutrophils (%) (Auto) 59.8 % (45.0-75.0) 70.9 % (45.0-75.0) 66.1 % (45.0-75.0) Lymphocytes (%) (Auto) 31.8 % (20.0-45.0) 20.2 % (20.0-45.0) 22.7 % (20.0-45.0) Monocytes (%) (Auto) 6.2 % (1.0-10.0) 7.2 % (1.0-10.0) 7.4 % (1.0-10.0) Eosinophils (%) (Auto) 1.5 % (0.0-3.0) 1.0 % (0.0-3.0) 2.9 % (0.0-3.0) Basophils (%) (Auto) 0.7 % (0.0-2.0) 0.7 % (0.0-2.0) 1.1 % (0.0-2.0) Prothrombin Time 10.9 SEC (9.30-11.50) 11.1 SEC (9.30-11.50) Prothromb Time International Ratio 1.0 (0.9-1.1) 1.1 (0.9-1.1) Activated Partial Thromboplast Time 28 SEC (23-33) 29 SEC (23-33) Sodium Level 142 MMOL/L (136-145) 146 MMOL/L (136-145) H Potassium Level 2.9 MMOL/L (3.5-5.1) L 3.4 MMOL/L (3.5-5.1) L Chloride Level 107 MMOL/L (98-107) 113 MMOL/L (98-107) H Carbon Dioxide Level 26 MMOL/L (21-32) 24 MMOL/L (21-32) Anion Gap 9 mmol/L (5-15) 9 mmol/L (5-15) Blood Urea Nitrogen 15 mg/dL (7-18) 12 mg/dL (7-18) Creatinine 1.2 MG/DL (0.55-1.30) 0.8 MG/DL (0.55-1.30) Estimat Glomerular Filtration Rate mL/min (>60) mL/min (>60) Glucose Level 179 MG/DL (74-106) H 111 MG/DL (74-106) H Calcium Level 8.3 MG/DL (8.5-10.1) L 7.4 MG/DL (8.5-10.1) L Total Bilirubin 0.6 MG/DL (0.2-1.0) Aspartate Amino Transf (AST/SGOT) 11 U/L (15-37) L Alanine Aminotransferase (ALT/SGPT) 17 U/L (12-78) Alkaline Phosphatase 75 U/L (46-116) Total Creatine Kinase 64 U/L (26-308) Troponin I 0.000 ng/mL (0.000-0.056) Total Protein 5.9 G/DL (6.4-8.2) L Albumin 2.9 G/DL (3.4-5.0) L Globulin 3.0 g/dL Albumin/Globulin Ratio 1.0 (1.0-2.7) Lipase 218 U/L (73-393) Plan Problems: (1) Lower GI bleed Assessment & Plan: Acute lower GI bleed 1-2 days after colonoscopy with polypectomy. Anemia s/p PRBC transfusion. Likely bleeding from polypectomy site which is common and has hopefully stopped by now. Likely just oozing and not active arterial bleeding. Discussed with PCP and GI -Trend H/H -Transfuse PRN -prep for colonoscopy currently -no acute surgical intervention necessary at this time. will be available in case ongoing hemorrhage thank you for allowing me to participate in Mr. Raymundo's care. will follow with David Negron Apr 15, 2018 12:01
[2018-04-15] MEDS ORDERED: LR 1000ml 1,000 ML IVLG SCH (12:10)
--- NOTE | 2018-04-15 12:14 | Anethesia Preoperative Eval ---
Anesthesia Pre-op PMH/ROS General Date of Evaluation: Apr 15, 2018 Anesthesiologist: Rosey ASA Score: ASA 3 Mallampati Score Class I : Soft palate, uvula, fauces, pillars visible Class II: Soft palate, uvula, fauces visible Class III: Soft palate, base of uvula visible Class IV: Only hard plate visible Mallampati Classification: Class II Surgeon: Swapnil Diagnosis: Rectal bleeding Surgical Procedure: Colonoscopy Family History: no anesthesia problems Allergies: Coded Allergies: No Known Allergies (Unverified , 04/02/18) Medications: see eMAR Past Medical History Cardiovascular: Reports: HTN; Denies: CAD, MT, valve dz, arrhythmia, other Pulmonary: Denies: asthma, COPD, TERRY, other Gastrointestinal/Genitourinary: Denies: GERD, CRI, ESRD, other Neurologic/Psychiatric: Denies: dementia, CVA, depression/anxiety, TIA, other Endocrine: Denies: DM, hypothyroidism, steroids, other HEENT: Denies: cataract (L), cataract (R), glaucoma, [place] (L), [place] (R), other Hematology/Immune: Reports: anemia - Rectal bleeding; Denies: DVT, bleeding disorder, other Musculoskeletal/Integumentary: Denies: OA, RA, DJD, DDD, edema, other PMH Narrative: HTN, hyperlipemia, colon polyps, rectal bleeding PSxH Narrative: Colonoscopy (removal of polyps) Anesthesia Pre-op Phys. Exam Physician Exam Last Vital Signs Date Time Temp Pulse Resp B/P (MAP) Pulse Ox O2 Delivery O2 Flow Rate FiO2 04/15/18 08:00 82 04/15/18 08:00 99.7 18 135/74 (94) 100 99.7 04/14/18 22:16 Room Air Constitutional: NAD Neurologic: CN 2-12 intact Cardiovascular: RRR, no M/R/G Respiratory: CTA Gastrointestinal: S/NT/ND Airway Exam Mallampati Score: Class II MO: full ROM: full Anesthesia Pre-op A/P Labs Hematology Test 04/14/18 15:25 04/14/18 17:18 04/15/18 05:50 White Blood Count 10.9 K/UL (4.8-10.8) H 11.7 K/UL (4.8-10.8) H 9.5 K/UL (4.8-10.8) Red Blood Count 3.44 M/UL (4.70-6.10) L 2.85 M/UL (4.70-6.10) L 2.91 M/UL (4.70-6.10) L Hemoglobin 11.1 G/DL (14.2-18.0) L 9.3 G/DL (14.2-18.0) L 9.2 G/DL (14.2-18.0) L Hematocrit 32.8 % (42.0-52.0) L 27.6 % (42.0-52.0) L 26.7 % (42.0-52.0) L Mean Corpuscular Volume 95 FL (80-99) 97 FL (80-99) 92 FL (80-99) Mean Corpuscular Hemoglobin 32.3 PG (27.0-31.0) H 32.5 PG (27.0-31.0) H 31.6 PG (27.0-31.0) H Mean Corpuscular Hemoglobin Concent 33.9 G/DL (32.0-36.0) 33.7 G/DL (32.0-36.0) 34.5 G/DL (32.0-36.0) Red Cell Distribution Width 14.6 % (11.6-14.8) 14.8 % (11.6-14.8) 14.3 % (11.6-14.8) Platelet Count 315 K/UL (150-450) 250 K/UL (150-450) 240 K/UL (150-450) Mean Platelet Volume 5.9 FL (6.5-10.1) L 5.7 FL (6.5-10.1) L 6.2 FL (6.5-10.1) L Neutrophils (%) (Auto) 59.8 % (45.0-75.0) 70.9 % (45.0-75.0) 66.1 % (45.0-75.0) Lymphocytes (%) (Auto) 31.8 % (20.0-45.0) 20.2 % (20.0-45.0) 22.7 % (20.0-45.0) Monocytes (%) (Auto) 6.2 % (1.0-10.0) 7.2 % (1.0-10.0) 7.4 % (1.0-10.0) Eosinophils (%) (Auto) 1.5 % (0.0-3.0) 1.0 % (0.0-3.0) 2.9 % (0.0-3.0) Basophils (%) (Auto) 0.7 % (0.0-2.0) 0.7 % (0.0-2.0) 1.1 % (0.0-2.0) Coagulation Test 04/14/18 15:25 04/15/18 05:50 Prothrombin Time 10.9 SEC (9.30-11.50) 11.1 SEC (9.30-11.50) Prothromb Time International Ratio 1.0 (0.9-1.1) 1.1 (0.9-1.1) Activated Partial Thromboplast Time 28 SEC (23-33) 29 SEC (23-33) Chemistry Test 04/14/18 15:25 04/15/18 05:50 Sodium Level 142 MMOL/L (136-145) 146 MMOL/L (136-145) H Potassium Level 2.9 MMOL/L (3.5-5.1) L 3.4 MMOL/L (3.5-5.1) L Chloride Level 107 MMOL/L (98-107) 113 MMOL/L (98-107) H Carbon Dioxide Level 26 MMOL/L (21-32) 24 MMOL/L (21-32) Anion Gap 9 mmol/L (5-15) 9 mmol/L (5-15) Blood Urea Nitrogen 15 mg/dL (7-18) 12 mg/dL (7-18) Creatinine 1.2 MG/DL (0.55-1.30) 0.8 MG/DL (0.55-1.30) Estimat Glomerular Filtration Rate mL/min (>60) mL/min (>60) Glucose Level 179 MG/DL (74-106) H 111 MG/DL (74-106) H Calcium Level 8.3 MG/DL (8.5-10.1) L 7.4 MG/DL (8.5-10.1) L Total Bilirubin 0.6 MG/DL (0.2-1.0) Aspartate Amino Transf (AST/SGOT) 11 U/L (15-37) L Alanine Aminotransferase (ALT/SGPT) 17 U/L (12-78) Alkaline Phosphatase 75 U/L (46-116) Total Creatine Kinase 64 U/L (26-308) Troponin I 0.000 ng/mL (0.000-0.056) Total Protein 5.9 G/DL (6.4-8.2) L Albumin 2.9 G/DL (3.4-5.0) L Globulin 3.0 g/dL Albumin/Globulin Ratio 1.0 (1.0-2.7) Lipase 218 U/L (73-393) Risk Assessment & Plan Assessment: Rectal bleeding, appears stable Plan: GA, TIVA Status Change Before Surgery: No Pre-Antibiotics Drug: None Albert Currie MD Apr 15, 2018 12:14
[2018-04-15] MEDS ORDERED: fentaNYL 100 mcg/2 mL IV PRN (12:15)
--- NOTE | 2018-04-15 12:15 | Immediate Post-Op Evaluation ---
Immediate Post-Op Evalulation Immediate Post-Op Evalulation Procedure: Colonoscopy Date of Evaluation: Apr 15, 2018 Time of Evaluation: 13:15 IV Fluids: 250 Blood Pressure Systolic: 94 Blood Pressure Diastolic: 52 Pulse Rate: 73 Respiratory Rate: 22 O2 Sat by Pulse Oximetry: 99 Temperature (Fahrenheit): 97.2 Pain Score (1-10): 0 Nausea: No Vomiting: No Complications No complication Patient Status: awake, patent, extubated, none Hydration Status: adequate Drug: None Albert Currie MD Apr 15, 2018 12:15
[2018-04-15] MEDS ORDERED: NS 500ML IVPB ONE (12:25)
--- NOTE | 2018-04-15 12:28 | Pre-Procedure Note/Attestation ---
Pre-Procedure Note/Attestation Complete Prior to Procedure Planned Procedure: not applicable Procedure Narrative: colonoscopy Indications for Procedure Pre-Operative Diagnosis: gib Attestation I attest that I discussed the nature of the procedure; its benefits; risks and complications; and alternatives (and the risks and benefits of such alternatives ), prior to the procedure, with the patient (or the patient's legal signs sales representative). I attest that, if there was a reasonable possibility of needing a blood transfusion, the patient (or the patient's legal signs sales representative) was given the [facility] standardized written summary, pursuant to the Albert Melecio Blood Safety Act ([place] Health and Safety Code # 1645, as amended). I attest that I re-evaluated the patient just prior to the surgery and that there has been no change in the patient's H&P, except as documented below: Severiano Kraft MD Apr 15, 2018 12:28
--- NOTE | 2018-04-15 12:56 | Endoscopy Procedure Note ---
Endoscopy Procedure Note General Indication for Procedure: gib Procedures Performed: colonoscopy Operative Findings/Diagnosis: diverticulosis Specimen: yes Pt Tolerated Procedure Well: Yes Estimated Blood Loss: none Anesthesia Anesthesiologist: wisam Anesthesia: MAC Inserted Devices Implant(s) used?: No Quality Quality of Bowel Preparation: Good Did scope reach the cecum?: Yes Was there any complications?: No GI Core Measures 50 yrs or older w/o bx or poly: Not Applicable 10yrs. F/U not recommended: Not Applicable Severiano Kraft MD Apr 15, 2018 12:56
--- NOTE | 2018-04-15 17:59 | Procedure Note ---
DATE OF PROCEDURE: 04/15/2018 SURGEON: Severiano Kraft M.D. ANESTHESIOLOGIST: Dr. Currie. REFERRING PHYSICIAN: Percy Leahy M.D. PROCEDURE: Upper endoscopy with biopsy and colonoscopy with hemostasis and biopsy. ANESTHESIA: Per Dr. Currie. INSTRUMENT: Olympus adult flexible upper endoscope and colonoscope. INDICATION: GI bleeding. The procedure, risks, benefits, and possible consequences, including hemorrhage, aspiration, perforation and infection, and alternative treatments, were explained to the patient/legal guardian by Dr. Severiano Kraft and the patient/legal guardian understood and accepted these risks. DESCRIPTION OF PROCEDURE: After informed consent was obtained and the patient was adequately sedated, first rectal exam was performed which was positive for internal hemorrhoids. Then, the scope was advanced from the rectum into the cecum documented by the appendiceal orifice, ileocecal valve, and right upper quadrant palpation. Quality of prep was very good. The patient had a large polypectomy done on Sunday with some blood clot seen on the polypectomy site, most probably the source of bleeding. At this time, there was no active bleeding, but we placed a large Hemoclip at one site it seemed to be had the blood clot sitting on it. At this time, the scope was slowly removed. The patient had one polyp in the rectosigmoid area which measured roughly about 4-5 mm, removed with the cold biopsy forceps technique. Also, the patient had evidence of diverticulosis more in the left colon compared to right colon. Retroflexion in the rectum showed evidence of internal hemorrhoids. SUMMARY OF FINDINGS: 1. Bleeding most probably from the post-polypectomy site, status post Hemoclip placement x1. 2. One colonic polyp removed. 3. Diverticulosis. 4. Internal hemorrhoids. RECOMMENDATIONS: 1. Follow up biopsy results and treat accordingly. 2. Follow up it seems that the polyp at the ileocecal valve is pretty large and maybe there was some retained polyp left. At this time given the bleeding, we are not going to pursue repeat polypectomy. I will follow up pathology. If there is any evidence of dysplasia, we will recommend surgical consultation. If not, we are going to recommend repeat colonoscopy in one year. I want to thank Dr. Percy Leahy for this kind referral. Severiano Gretchen Kraft DR: [place] JOB#: [id number] CC: Percy Leahy M.D.; Fax#: [phone]
--- NOTE | 2018-04-15 18:08 | Diagnostic Imaging Report ---
Clinical Indication: Abdominal pain Technique: No oral contrast utilized, per emergency room physician request IV administration nonionic contrast. Venous phase spiral acquisition obtained through the abdomen and pelvis. Multiplanar reconstructions were generated. Total dose length product 998.01 mGycm. CTDIvol(s) 17.93 mGy. Dose reduction achieved using automated exposure control Comparison: none Findings: Normal appendix. There is colonic diverticulosis. No evidence of diverticulitis. No small bowel distention. No free or loculated intraperitoneal gas or fluid is evident. The distal esophagus, stomach, duodenum are unremarkable. Colon, small bowel loops are mildly fluid-filled. The liver demonstrates multiple cysts. It also demonstrates multiple subcentimeter low-attenuation lesions which are too small to characterize but most likely represent benign simple cysts or bile hamartomas. The gallbladder, bile ducts, pancreas, spleen, right adrenal are unremarkable. There is mild hypertrophy of the left adrenal. The kidneys demonstrate multiple cysts, largest in the bilateral upper poles. There are also subcentimeter low-attenuation lesions, too small to characterize. There is a circumaortic left renal vein incidentally noted. There is mild fusiform ectasia of the distal abdominal aorta, which is nonetheless not quite aneurysmal, measuring 2.8 cm diameter. No retroperitoneal or mesenteric mass or adenopathy. No pelvic mass or adenopathy. Surgical clips are seen in the pelvis. Bladder is nondistended. It demonstrates small bilateral bladder diverticula. There is apparent mild bladder wall thickening, presumably an artifact of under distention. The prostate is mildly enlarged, contains calcifications. Impression: Mildly fluid-filled small bowel and colon, could indicate diarrhea and/or enteritis. No acute process otherwise. Normal appendix. No evidence of bowel obstruction Colonic diverticulosis. No evidence of diverticulitis Nonspecific mild left adrenal hypertrophy Hepatic cysts. Subcentimeter low-attenuation liver lesions, too small to characterize, most likely benign simple cysts or bile hamartomas Bilateral renal cysts. Multiple subcentimeter low-attenuation renal lesions, too small to characterize, most likely benign simple cortical cysts Mild fusiform ectasia of the distal abdominal aorta, not quite aneurysmal, 2.8 cm diameter Other findings as noted, including prostatomegaly, small bilateral bladder diverticula, evidence of prior pelvic surgery, circumaortic left renal vein This agrees with the preliminary interpretation provided overnight by [facility] teleradiology service. The CT scanner at [facility] is accredited by the [employer] and the scans are performed using protocols designed to limit radiation exposure to as low as reasonably achievable to attain images of sufficient resolution adequate for diagnostic evaluation.
--- NOTE | 2018-04-15 21:03 | General Progress Note ---
Assessment/Plan Assessment/Plan gi bleeding colonic polyps sp recent colonospy htn for colonoscopy today monitor hct bp stable dvt and ulcer rpophylaxis Subjective Allergies: Coded Allergies: No Known Allergies (Unverified , 04/02/18) Subjective sp 2 units prbc no chest pain or sob no dizziness no abdominal pain going for colonpsy Objective Last 24 Hour Vital Signs Date Time Temp Pulse Resp B/P (MAP) Pulse Ox O2 Delivery O2 Flow Rate FiO2 04/15/18 16:00 97.5 65 18 117/70 (86) 97 97.5 04/15/18 16:00 76 04/15/18 13:32 97.4 72 21 119/78 100 Room Air 97.4 04/15/18 13:25 74 23 128/70 100 Room Air 04/15/18 13:15 70 22 94/49 99 Room Air 04/15/18 13:10 71 24 97/54 97 Room Air 04/15/18 13:09 207.0 73 22 99 04/15/18 13:06 97.6 74 20 94/52 98 Room Air 97.6 04/15/18 12:00 97.9 77 18 130/84 (99) 99 97.9 04/15/18 12:00 75 04/15/18 09:00 Room Air 04/15/18 08:00 82 04/15/18 08:00 99.7 76 18 135/74 (94) 100 99.7 04/15/18 04:00 78 04/15/18 04:00 99.7 83 20 116/71 (86) 99 99.7 04/15/18 00:00 99.9 88 20 109/71 (84) 100 99.9 04/15/18 00:00 91 04/14/18 22:16 Room Air 04/14/18 21:20 97.9 82 18 119/74 (89) 100 97.9 04/14/18 21:11 77 Intake and Output 04/14/18 04/15/18 19:00 07:00 Intake Total 1386 ml Output Total 0 ml 100 ml Balance 0 ml 1286 ml Intake Oral 480 ml IV Total 906 ml Output Urine Total 0 ml Stool Total 100 ml # Voids 2 # Bowel Movements 1 Laboratory Tests 04/15/18 05:50: White Blood Count 9.5, Red Blood Count 2.91L, Hemoglobin 9.2L, Hematocrit 26.7L , Mean Corpuscular Volume 92, Mean Corpuscular Hemoglobin 31.6H, Mean Corpuscular Hemoglobin Concent 34.5, Red Cell Distribution Width 14.3, Platelet Count 240, Mean Platelet Volume 6.2L, Neutrophils (%) (Auto) 66.1, Lymphocytes ( %) (Auto) 22.7, Monocytes (%) (Auto) 7.4, Eosinophils (%) (Auto) 2.9, Basophils (%) (Auto) 1.1, Prothrombin Time 11.1, Prothromb Time International Ratio 1.1, Activated Partial Thromboplast Time 29, Sodium Level 146H, Potassium Level 3.4L , Chloride Level 113H, Carbon Dioxide Level 24, Anion Gap 9, Blood Urea Nitrogen 12, Creatinine 0.8, Estimat Glomerular Filtration Rate , Glucose Level 111H, Calcium Level 7.4L Height (Feet): 6 Height (Inches): 2.00 Weight (Pounds): 209 General Appearance: WD/WN, no apparent distress Neck: supple Cardiovascular: normal rate Respiratory/Chest: lungs clear Abdomen: soft Edema: no edema noted Arm (L), no edema noted Arm (R), no edema noted Leg (L), no edema noted Leg (R), no edema noted Pedal (L), no edema noted Pedal (R), no edema noted Generalized Percy Leahy MD Apr 15, 2018 21:03
[2018-04-16] VITALS: BP 121/65
[2018-04-16 04:00] VITALS: BP 124/69
[2018-04-16 07:31] LABS: EOSINOPHILS % (AUTO) 2.4 % (0.0-3.0); HEMATOCRIT 25.3 % (42.0-52.0); HEMOGLOBIN 8.4 G/DL (14.2-18.0); LYMPHOCYTES % (AUTO) 22.3 % (20.0-45.0); MEAN CORPUSCULAR VOLUME 93 FL (80-99); MONOCYTES % (AUTO) 6.6 % (1.0-10.0); NEUTROPHILS % (AUTO) 67.7 % (45.0-75.0); PLATELET COUNT 229 K/UL (150-450); RED BLOOD COUNT 2.72 M/UL (4.70-6.10); WHITE BLOOD COUNT 8.7 K/UL (4.8-10.8)
[2018-04-16 07:53] LABS: ANION GAP 5 mmol/L (5-15); BLOOD UREA NITROGEN 9 mg/dL (7-18); CARBON DIOXIDE 27 MMOL/L (21-32); CHLORIDE 112 MMOL/L (98-107); CREATININE 0.7 MG/DL (0.55-1.30); POTASSIUM 3.1 MMOL/L (3.5-5.1); SODIUM 144 MMOL/L (136-145)
[2018-04-16 08:00] VITALS: BP 132/63
[2018-04-16 11:55] VITALS: BP 122/58
--- NOTE | 2018-04-16 13:20 | GI Progress Note ---
Assessment/Plan Problems: (1) Lower GI bleed ICD Codes: K92.2 - Gastrointestinal hemorrhage, unspecified SNOMED: 07950088 (2) Colonoscopy planned SNOMED: 176497726 (3) Hemorrhagic shock ICD Codes: R57.8 - Other shock SNOMED: 618579 Status: stable Status Narrative Discussed with Dr. Kraft. Assessment/Plan SUMMARY OF FINDINGS: 1. Bleeding most probably from the post-polypectomy site, status post Hemoclip placement x1. >> no recurrent bleed today 2. One colonic polyp removed. 3. Diverticulosis. 4. Internal hemorrhoids. RECOMMENDATIONS: dc planning for tomorrow Follow up biopsy results and treat accordingly. Follow up it seems that the polyp at the ileocecal valve is pretty large and maybe there was some retained polyp left. At this time given the bleeding, we are not going to pursue repeat polypectomy. If there is any evidence of dysplasia, we will recommend surgical consultation. repeat colonoscopy x1 year The patient was seen and examined at bedside and all new and available data was reviewed in the patients chart. I agree with the above findings, impression and plan. (Patient seen earlier today. Signature stamp does not reflect patient encounter time.). - Severiano Kraft MD Subjective Gastrointestinal/Abdominal: Reports: no symptoms Objective Last 24 Hour Vital Signs Date Time Temp Pulse Resp B/P (MAP) Pulse Ox O2 Delivery O2 Flow Rate FiO2 04/16/18 11:55 97.9 79 18 122/58 (79) 100 97.9 04/16/18 09:00 Room Air 04/16/18 08:00 72 04/16/18 08:00 98.8 80 18 132/63 (86) 95 98.8 04/16/18 04:00 69 04/16/18 04:00 98.4 73 20 124/69 (87) 97 98.4 04/16/18 00:00 98.2 73 20 121/65 (83) 96 98.2 04/16/18 00:00 72 04/15/18 21:00 Room Air 04/15/18 20:00 76 04/15/18 20:00 98.0 78 20 121/66 (84) 97 98.0 04/15/18 16:00 97.5 65 18 117/70 (86) 97 97.5 04/15/18 16:00 76 04/15/18 13:32 97.4 72 21 119/78 100 Room Air 97.4 04/15/18 13:25 74 23 128/70 100 Room Air Intake and Output 04/15/18 04/16/18 19:00 07:00 Intake Total 680 ml 1343 ml Output Total 0 ml Balance 680 ml 1343 ml Intake Oral 230 ml 240 ml IV Total 450 ml 1103 ml Estimated Blood Loss 0 ml # Voids 3 2 Laboratory Tests Test 04/16/18 06:00 White Blood Count 8.7 K/UL (4.8-10.8) Red Blood Count 2.72 M/UL (4.70-6.10) L Hemoglobin 8.4 G/DL (14.2-18.0) L Hematocrit 25.3 % (42.0-52.0) L Mean Corpuscular Volume 93 FL (80-99) Mean Corpuscular Hemoglobin 30.7 PG (27.0-31.0) Mean Corpuscular Hemoglobin Concent 33.0 G/DL (32.0-36.0) Red Cell Distribution Width 14.0 % (11.6-14.8) Platelet Count 229 K/UL (150-450) Mean Platelet Volume 5.7 FL (6.5-10.1) L Neutrophils (%) (Auto) 67.7 % (45.0-75.0) Lymphocytes (%) (Auto) 22.3 % (20.0-45.0) Monocytes (%) (Auto) 6.6 % (1.0-10.0) Eosinophils (%) (Auto) 2.4 % (0.0-3.0) Basophils (%) (Auto) 1.0 % (0.0-2.0) Sodium Level 144 MMOL/L (136-145) Potassium Level 3.1 MMOL/L (3.5-5.1) L Chloride Level 112 MMOL/L (98-107) H Carbon Dioxide Level 27 MMOL/L (21-32) Anion Gap 5 mmol/L (5-15) Blood Urea Nitrogen 9 mg/dL (7-18) Creatinine 0.7 MG/DL (0.55-1.30) Estimat Glomerular Filtration Rate mL/min (>60) Glucose Level 103 MG/DL (74-106) Calcium Level 8.0 MG/DL (8.5-10.1) L Height (Feet): 6 Height (Inches): 2.00 Weight (Pounds): 209 General Appearance: WD/WN, no apparent distress, alert Cardiovascular: normal rate Respiratory/Chest: normal breath sounds, no respiratory distress Abdominal Exam: normal bowel sounds, non tender, soft Extremities: normal range of motion, non-tender Peter Quiñones NP Apr 16, 2018 13:20
--- NOTE | 2018-04-16 15:13 | General Surgery Progress Note ---
General Surgery-Progress Note Subjective Symptoms: improved, pain absent, tolerating diet, passing flatus, BM Objective Last 24 Hour Vital Signs Date Time Temp Pulse Resp B/P (MAP) Pulse Ox O2 Delivery O2 Flow Rate FiO2 04/16/18 12:00 75 04/16/18 11:55 97.9 79 18 122/58 (79) 100 97.9 04/16/18 09:00 Room Air 04/16/18 08:00 72 04/16/18 08:00 98.8 80 18 132/63 (86) 95 98.8 04/16/18 04:00 69 04/16/18 04:00 98.4 73 20 124/69 (87) 97 98.4 04/16/18 00:00 98.2 73 20 121/65 (83) 96 98.2 04/16/18 00:00 72 04/15/18 21:00 Room Air 04/15/18 20:00 76 04/15/18 20:00 98.0 78 20 121/66 (84) 97 98.0 04/15/18 16:00 97.5 65 18 117/70 (86) 97 97.5 04/15/18 16:00 76 I&O Intake and Output 04/15/18 04/16/18 19:00 07:00 Intake Total 680 ml 1343 ml Output Total 0 ml Balance 680 ml 1343 ml Intake Oral 230 ml 240 ml IV Total 450 ml 1103 ml Estimated Blood Loss 0 ml # Voids 3 2 Drains: none Cardiovascular: RSR Respiratory: clear Abdomen: soft, flat, non-tender, present bowel sounds Extremities: no edema, no tenderness, no cyanosis Laboratory Tests Test 04/16/18 06:00 White Blood Count 8.7 K/UL (4.8-10.8) Red Blood Count 2.72 M/UL (4.70-6.10) L Hemoglobin 8.4 G/DL (14.2-18.0) L Hematocrit 25.3 % (42.0-52.0) L Mean Corpuscular Volume 93 FL (80-99) Mean Corpuscular Hemoglobin 30.7 PG (27.0-31.0) Mean Corpuscular Hemoglobin Concent 33.0 G/DL (32.0-36.0) Red Cell Distribution Width 14.0 % (11.6-14.8) Platelet Count 229 K/UL (150-450) Mean Platelet Volume 5.7 FL (6.5-10.1) L Neutrophils (%) (Auto) 67.7 % (45.0-75.0) Lymphocytes (%) (Auto) 22.3 % (20.0-45.0) Monocytes (%) (Auto) 6.6 % (1.0-10.0) Eosinophils (%) (Auto) 2.4 % (0.0-3.0) Basophils (%) (Auto) 1.0 % (0.0-2.0) Sodium Level 144 MMOL/L (136-145) Potassium Level 3.1 MMOL/L (3.5-5.1) L Chloride Level 112 MMOL/L (98-107) H Carbon Dioxide Level 27 MMOL/L (21-32) Anion Gap 5 mmol/L (5-15) Blood Urea Nitrogen 9 mg/dL (7-18) Creatinine 0.7 MG/DL (0.55-1.30) Estimat Glomerular Filtration Rate mL/min (>60) Glucose Level 103 MG/DL (74-106) Calcium Level 8.0 MG/DL (8.5-10.1) L Plan Problems: (1) Lower GI bleed Assessment & Plan: Acute lower GI bleed 1-2 days after colonoscopy with polypectomy. Anemia s/p PRBC transfusion. Likely bleeding from polypectomy site which is common and has hopefully stopped by now. Likely just oozing and not active arterial bleeding. Discussed with PCP and GI s/p repeat colonoscopy and since stable path doris -no acute surgical intervention necessary at this time. will be available in case ongoing hemorrhage -AM labs and discharge plan for tomorrow if labs stable thank you for allowing me to participate in Mr. Raymundo's care. will follow with David Negron Apr 16, 2018 15:13
[2018-04-16 16:14] VITALS: BP 118/63
[2018-04-16 20:00] VITALS: BP 139/67
--- NOTE | 2018-04-16 21:40 | General Progress Note ---
Assessment/Plan Assessment/Plan gi bleeding colonic polyps sp recent colonospy htn sp colonpsy monitor hct bp stable dvt and ulcer prophylaxis ambulate Subjective Allergies: Coded Allergies: No Known Allergies (Unverified , 04/02/18) Subjective sp colonoscopy no abdominal pain no n/v Objective Last 24 Hour Vital Signs Date Time Temp Pulse Resp B/P (MAP) Pulse Ox O2 Delivery O2 Flow Rate FiO2 04/16/18 16:14 98.2 88 18 118/63 (81) 100 98.2 04/16/18 16:00 75 04/16/18 12:00 75 04/16/18 11:55 97.9 79 18 122/58 (79) 100 97.9 04/16/18 09:00 Room Air 04/16/18 08:00 72 04/16/18 08:00 98.8 80 18 132/63 (86) 95 98.8 04/16/18 04:00 69 04/16/18 04:00 98.4 73 20 124/69 (87) 97 98.4 04/16/18 00:00 98.2 73 20 121/65 (83) 96 98.2 04/16/18 00:00 72 Intake and Output 04/15/18 04/16/18 19:00 07:00 Intake Total 680 ml 1343 ml Output Total 0 ml Balance 680 ml 1343 ml Intake Oral 230 ml 240 ml IV Total 450 ml 1103 ml Estimated Blood Loss 0 ml # Voids 3 2 Laboratory Tests 04/16/18 06:00: White Blood Count 8.7, Red Blood Count 2.72L, Hemoglobin 8.4L, Hematocrit 25.3L , Mean Corpuscular Volume 93, Mean Corpuscular Hemoglobin 30.7, Mean Corpuscular Hemoglobin Concent 33.0, Red Cell Distribution Width 14.0, Platelet Count 229, Mean Platelet Volume 5.7L, Neutrophils (%) (Auto) 67.7, Lymphocytes ( %) (Auto) 22.3, Monocytes (%) (Auto) 6.6, Eosinophils (%) (Auto) 2.4, Basophils (%) (Auto) 1.0, Sodium Level 144, Potassium Level 3.1L, Chloride Level 112H, Carbon Dioxide Level 27, Anion Gap 5, Blood Urea Nitrogen 9, Creatinine 0.7, Estimat Glomerular Filtration Rate , Glucose Level 103, Calcium Level 8.0L Height (Feet): 6 Height (Inches): 2.00 Weight (Pounds): 209 General Appearance: WD/WN, no apparent distress Neck: supple Cardiovascular: normal rate Respiratory/Chest: lungs clear Abdomen: soft Edema: no edema noted Arm (L), no edema noted Arm (R), no edema noted Leg (L), no edema noted Leg (R), no edema noted Pedal (L), no edema noted Pedal (R), no edema noted Generalized Percy Leahy MD Apr 16, 2018 21:40
[2018-04-17] VITALS: BP 128/72
[2018-04-17 04:00] VITALS: BP 130/81
[2018-04-17 06:59] LABS: BASOPHILS % (AUTO) 0.6 % (0.0-2.0); EOSINOPHILS % (AUTO) 2.2 % (0.0-3.0); HEMATOCRIT 25.1 % (42.0-52.0); HEMOGLOBIN 8.1 G/DL (14.2-18.0); LYMPHOCYTES % (AUTO) 28.2 % (20.0-45.0); MEAN CORPUSCULAR VOLUME 93 FL (80-99); MONOCYTES % (AUTO) 8.2 % (1.0-10.0); NEUTROPHILS % (AUTO) 60.8 % (45.0-75.0); PLATELET COUNT 260 K/UL (150-450); RED BLOOD COUNT 2.69 M/UL (4.70-6.10); RED CELL DISTRIBUTION WIDTH 14.6 % (11.6-14.8); WHITE BLOOD COUNT 8.1 K/UL (4.8-10.8)
[2018-04-17 07:19] LABS: ANION GAP 6 mmol/L (5-15); BLOOD UREA NITROGEN 9 mg/dL (7-18); CALCIUM 8.2 MG/DL (8.5-10.1); CARBON DIOXIDE 28 MMOL/L (21-32); CHLORIDE 109 MMOL/L (98-107); CREATININE 0.7 MG/DL (0.55-1.30); POTASSIUM 3.1 MMOL/L (3.5-5.1); SODIUM 143 MMOL/L (136-145)
[2018-04-17 07:53] VITALS: BP_SYST 133; BP_SYST 141; BP_DIAS 56; BP_DIAS 81
--- NOTE | 2018-04-17 13:12 | GI Progress Note ---
Assessment/Plan Problems: (1) Lower GI bleed ICD Codes: K92.2 - Gastrointestinal hemorrhage, unspecified SNOMED: 52974409 (2) Colonoscopy planned SNOMED: 090039039 (3) Hemorrhagic shock ICD Codes: R57.8 - Other shock SNOMED: 005991 Status: stable Status Narrative Discussed with Dr. Kraft. Assessment/Plan SUMMARY OF FINDINGS: 1. Bleeding most probably from the post-polypectomy site, status post Hemoclip placement x1. >> no recurrent bleed today 2. One colonic polyp removed. 3. Diverticulosis. 4. Internal hemorrhoids. RECOMMENDATIONS: okay for DC per GI standpoint >> outpatient follow up Follow up biopsy results and treat accordingly. Follow up it seems that the polyp at the ileocecal valve is pretty large and maybe there was some retained polyp left. At this time given the bleeding, we are not going to pursue repeat polypectomy. If there is any evidence of dysplasia, we will recommend surgical consultation. repeat colonoscopy x1 year The patient was seen and examined at bedside and all new and available data was reviewed in the patients chart. I agree with the above findings, impression and plan. (Patient seen earlier today. Signature stamp does not reflect patient encounter time.). - Severiano Kraft MD Subjective Subjective had BM yesterday, denied any increased bleeding feels okay, ready to be discharged Objective Last 24 Hour Vital Signs Date Time Temp Pulse Resp B/P (MAP) Pulse Ox O2 Delivery O2 Flow Rate FiO2 04/17/18 07:53 98.0 76 20 141/81 (101) 96 98.0 04/17/18 07:37 81 04/17/18 07:11 Room Air 04/17/18 04:00 71 04/17/18 04:00 98.0 70 20 130/81 (97) 96 98.0 04/17/18 00:00 97.5 72 20 128/72 (90) 95 97.5 04/17/18 00:00 71 04/16/18 21:00 Room Air 04/16/18 20:00 76 04/16/18 20:00 98.2 76 18 139/67 (91) 97 98.2 04/16/18 16:14 98.2 88 18 118/63 (81) 100 98.2 04/16/18 16:00 75 Intake and Output 04/16/18 04/17/18 19:00 07:00 Intake Total 360 ml 1000 ml Balance 360 ml 1000 ml Intake Oral 360 ml IV Total 1000 ml # Voids 3 2 Laboratory Tests Test 04/17/18 05:55 White Blood Count 8.1 K/UL (4.8-10.8) Red Blood Count 2.69 M/UL (4.70-6.10) L Hemoglobin 8.1 G/DL (14.2-18.0) L Hematocrit 25.1 % (42.0-52.0) L Mean Corpuscular Volume 93 FL (80-99) Mean Corpuscular Hemoglobin 30.0 PG (27.0-31.0) Mean Corpuscular Hemoglobin Concent 32.2 G/DL (32.0-36.0) Red Cell Distribution Width 14.6 % (11.6-14.8) Platelet Count 260 K/UL (150-450) Mean Platelet Volume 5.8 FL (6.5-10.1) L Neutrophils (%) (Auto) 60.8 % (45.0-75.0) Lymphocytes (%) (Auto) 28.2 % (20.0-45.0) Monocytes (%) (Auto) 8.2 % (1.0-10.0) Eosinophils (%) (Auto) 2.2 % (0.0-3.0) Basophils (%) (Auto) 0.6 % (0.0-2.0) Sodium Level 143 MMOL/L (136-145) Potassium Level 3.1 MMOL/L (3.5-5.1) L Chloride Level 109 MMOL/L (98-107) H Carbon Dioxide Level 28 MMOL/L (21-32) Anion Gap 6 mmol/L (5-15) Blood Urea Nitrogen 9 mg/dL (7-18) Creatinine 0.7 MG/DL (0.55-1.30) Estimat Glomerular Filtration Rate mL/min (>60) Glucose Level 99 MG/DL (74-106) Calcium Level 8.2 MG/DL (8.5-10.1) L Height (Feet): 6 Height (Inches): 2.00 Weight (Pounds): 214 General Appearance: WD/WN, no apparent distress, alert Cardiovascular: normal rate Respiratory/Chest: normal breath sounds, no respiratory distress Abdominal Exam: normal bowel sounds, non tender, soft Extremities: normal range of motion, non-tender Peter Quiñones NP Apr 17, 2018 13:12
--- NOTE | 2018-04-18 12:11 | Discharge Summary ---
Discharge Summary Discharge Summary _ DATE OF ADMISSION: 04/14/2018 DATE OF DISCHARGE: 04/17/2018 CONSULTANTS: Dr. Severiano Burton BRIEF HOSPITAL COURSE: Patient is a 77-year-old male, with history of hypertension, hyperlipidemia, history of colon polyps, who had undergone colonoscopy on 04/04/[address] Kraft. After the procedure, he went home on stable condition, however, started to have watery, nonbloody bowel movement the following day. Symptoms progressed and noted to have a large bloody bowel movement with multiple blood clots. Symptoms continued and he presented to emergency room. On evaluation at ED, patient was hypotensive. Blood pressure was 79/44, heart rate 99. He was given IV fluid resuscitation. Initial blood count showed hemoglobin of 11, hematocrit 32. He was heme-positive. He was noted to have potassium level of 2.9. He was given potassium supplement via IV. Repeat CBC after 2 hours showed a drop of hemoglobin to 9.3. Blood transfusion was initiated. He was then admitted for evaluation of GI bleed and hemorrhagic shock. He was placed on IV fluids. Surgical evaluation was obtained. There was no active arterial bleeding, bleeding likely from polypectomy site. He was kept nothing by mouth. Following day, he underwent upper endoscopy with biopsy and colonoscopy with hemostasis and biopsy by Dr. Kraft. Findings showed blood clot on the polypectomy site, most probable source of bleeding although there was no active bleeding seen. A large Hemoclip was placed. Patient had 1 polyp in the rectosigmoid area which was removed with cold biopsy forceps technique. Pathology result was without any evidence of dysplasia or malignancy. He was eventually restarted on diet. He was tolerating diet well and was passing flatus and BM. He was advised repeat colonoscopy in a year. Vital signs were stable. There was no further bleeding noted. Patient was discharged home. FINAL DIAGNOSES: Acute anemia secondary to lower GI bleed, most probably from post polypectomy site Anemia requiring blood transfusion Hemorrhagic shock, resolved Colonic polyps Hypertension Diverticulosis Internal hemorrhoids Status post EGD with colonoscopy on 04/15/2018 DISPOSITION: Patient was discharged home. DISCHARGE MEDICATIONS: Refer to Discharge Medication List. DISCHARGE INSTRUCTIONS: Follow up within a week. I have been assigned to dictate discharge summary on this account, and I was not involved in the patient's management. Linda Yost NP Apr 18, 2018 12:11
== END 2018-04-17 11:51 | disposition home or self-care (01) | DRG 377 ==
LOC: EMR 16:02 → EDBEDREQ 18:49 → 2E 19:03
DX: K92.2 Gastrointestinal hemorrhage, unspecified (principal); R57.8 Other shock; D62 Acute posthemorrhagic anemia; Z86.010 Personal history of colon polyps; Z98.890 Other specified postprocedural states; I10 Essential (primary) hypertension; K64.8 Other hemorrhoids; E78.5 Hyperlipidemia, unspecified; K57.90 Diverticulosis of intestine, part unspecified, without perforation or abscess without bleeding
CPT/HCPCS: 36415; 71045; 74177; 80048; 80053; 82550; 83690; 84484; 85025; 85610; 85730; 86850; 86900; 86901; 86920; 93005; 94003; 94150; 96361; 96365; 96366; 96375; 99285; J8499